=== PATIENT | male | born 1975 | race Caucasian/White ===

== ENCOUNTER 2018-07-25 10:44 | Emergency (ER) | payer MEDICAID ==
[~2018-07-25] VITALS: Ht 180.3 cm; Wt 125.6 kg
[2018-07-25 11:05] VITALS: Ht 180.3 cm; Wt 125.6 kg
[2018-07-25 11:53] VITALS: BP 137/73
== END 2018-07-25 11:53 | disposition home or self-care (01) ==
LOC: ED 10:44
DX: S63.501A Unspecified sprain of right wrist, initial encounter (principal); E78.00 Pure hypercholesterolemia, unspecified; X58.XXXA Exposure to other specified factors, initial encounter; Y93.66 Activity, soccer; Y92.89 Other specified places as the place of occurrence of the external cause; Y99.8 Other external cause status
CPT/HCPCS: Q0092

== ENCOUNTER 2020-06-25 11:08 | Emergency (ER) | payer MEDICAID ==
[~2020-06-25] VITALS: Ht 172.7 cm; Wt 127.9 kg
[2020-06-25 11:26] VITALS: Ht 172.7 cm; Wt 127.9 kg
[2020-06-25 14:30] VITALS: BP 134/78
== END 2020-06-25 14:20 | disposition home or self-care (01) ==
LOC: ED 11:08
DX: R07.89 Other chest pain (principal); R10.814 Left lower quadrant abdominal tenderness; E66.1 Drug-induced obesity; E78.00 Pure hypercholesterolemia, unspecified; Z98.890 Other specified postprocedural states; W01.0XXA Fall on same level from slipping, tripping and stumbling without subsequent striking against object, initial encounter; Y93.89 Activity, other specified; Y92.89 Other specified places as the place of occurrence of the external cause; Y99.8 Other external cause status
CPT/HCPCS: J1885